=== PATIENT | female | born 1960 | race Caucasian/White ===

== ENCOUNTER 2016-10-02 10:46 | Inpatient (IN) | payer MEDICARE, OTHER ==
[2016-10-02 12:40] LABS: Hematocrit 42 % (35-47); Hemoglobin 13.5 g/dl (12.0-16.0); Mean Corpuscular HGB Conc 33 g/dl (31-36); Mean Corpuscular Hemoglobin 29 pg (27-31); Mean Corpuscular Volume 90 fL (80-97); Mean Platelet Volume 8 um3 (7.4-10.4); Red Blood Count 4.61 10^6/ul (4.0-5.4); Red Cell Distribution Width 12 % (10.5-15); White Blood Count 7.4 10^3/ul (3.5-10.8)
[2016-10-02 12:45] LABS: Urine Bilirubin Negative (Negative); Urine Glucose Negative (Negative); Urine Nitrite Negative (Negative)
[2016-10-02 12:53] LABS: ALT 19 U/L (7-52); AST 22 U/L (13-39); Albumin 4.6 g/dL (3.2-5.2); Alkaline Phosphatase 45 U/L (34-104); Anion Gap 7 mmol/L (2-11); BUN/Creatinine Ratio 10.9 (8-20); Blood Urea Nitrogen 10 mg/dL (6-24); CO2 Carbon Dioxide 27 mmol/L (22-32); Chloride 103 mmol/L (101-111); EGFR African American 81.2 (>60); EGFR Non-African American 63.1 (>60); Glucose 95 mg/dL (70-100); Lipase < 10 U/L (11.0-82.0); Potassium 4.3 mmol/L (3.5-5.0); Sodium 137 mmol/L (133-145); Total Protein 7.6 g/dL (6.4-8.9)
--- NOTE | 2016-10-02 13:11 | RAD ---
HISTORY: Right upper quadrant pain COMPARISONS: None TECHNIQUE: Multiple transverse and longitudinal ultrasound images were obtained of the right upper quadrant of the abdomen using grayscale and color Doppler imaging. FINDINGS: LIVER: The liver is diffusely echogenic and coarse in echotexture, with decreased acoustic transmission. The liver is otherwise normal in shape, size, and contour. There is normal hepatopedal flow of the portal vein on Doppler imaging. BILIARY TREE: There is no intrahepatic or extrahepatic biliary dilatation. The common duct measures 0.2 cm. GALLBLADDER: The gallbladder is well-visualized. There is no cholelithiasis, gallbladder wall thickening, pericholecystic fluid, or sonographic Mcpherson sign. PANCREAS: The head of the pancreas is unremarkable. The tail of the pancreas is not well visualized secondary to overlying bowel gas. RIGHT KIDNEY: The right kidney is normal in shape, size, contour, and echogenicity. There is no hydronephrosis or nephrolithiasis. The right kidney measures 9.1 x 3.2 x 4.8 cm. AORTA AND IVC: The aorta and IVC are unremarkable. FLUID: There are no pleural effusions. There is no free fluid within the hepatorenal recess. OTHER FINDINGS: None. IMPRESSION: ECHOGENIC LIVER SUGGESTIVE OF FATTY INFILTRATION
[2016-10-02] MEDS ORDERED: Lidocaine 2% VISCOUS* 15 ML UDC PO ONE (13:17)
[2016-10-02] MEDS ORDERED: Al Hydrox/Mg Hydrox/Simet LIQ* 30 ML UDC PO ONE (13:17)
[2016-10-02 14:49] LABS: Acetaminophen 0 mcg/mL; Alcohol < 10 mg/dL (<10); TSH (Thyroid Stimulating Horm) 2.34 mcIU/mL (0.34-5.60)
[2016-10-02 15:04] LABS: Benzodiazepine Urine Screen None Detected (None Detect)
--- NOTE | 2016-10-02 15:21 | ED ---
Abdominal Pain/Female - HPI Summary HPI Summary: 56F presents with abdominal pain for two months. She states the pain is worst when eating. She denies any n/v/d/c or fever. She denies any dysuria, hematuria , urgency, or frequency. She states she has chronic back pain and hip pain which she sees the pain clinic for. She states that had a pain patch placed a week ago but the pain clinic but feels that the side effects are not tolerable. She denies any loss of bowel or bladder or saddle anaesthesia. She denies any new injury. She states she has history of opioid abuse so she does not want pain medication. Also says that counselor is advising mental health exam but patient declined. She denies any SI/HI at the time. She has PMH of depression - History of Current Complaint Chief Complaint: EDAbdPain Stated Complaint: MHE Time Seen by Provider: 10/02/16 11:06 Pain Intensity: 6 Allergies/Adverse Reactions: Allergies Allergy/AdvReac Type Severity Reaction Status Date / Time CI Pigment Blue 63 Allergy Rash Verified 10/02/16 11:38 [From Cymbalta] Duloxetine [From Cymbalta] Allergy Rash Verified 10/02/16 11:38 Home Medications: Home Medications Buprenorphine 10 MCG PATCH(NF) [Butrans 10 MCG PATCH(NF)] 10 mcg TRANSDERM WEEKLY 10/02/16 [History Confirmed 10/02/16] Citalopram Hydrobromide [Celexa] 10 mg PO DAILY 10/02/16 [History Confirmed 06/16] Gabapentin CAP(*) [Neurontin 100 mg CAP(*)] 200 mg PO BID 10/02/16 [History Confirmed 10/02/16] Mirtazapine [Remeron] 30 mg PO DAILY 10/02/16 [History Confirmed 10/02/16] Risperidone 0.25 mg PO DAILY 10/02/16 [History Confirmed 10/02/16] Tizanidine HCl [Zanaflex] 4 mg PO TID PRN 10/02/16 [History Confirmed 10/02/16] PMH/Surg Hx/FS Hx/Imm Hx Endocrine/Hematology History: Denies: Hx Anticoagulant Therapy Musculoskeletal History: Reports: Hx Back Problems Psychiatric History: Reports: Hx Depression Denies: Hx of Violent Episodes Against Others Infectious Disease History: No Infectious Disease History: Denies: Traveled Outside the [place] in Last 30 Days - Family History Known Family History: Negative: Cardiac Disease - Social History Alcohol Use: Rare Substance Use Type: Reports: Prescribed Smoking Status (MU): Light Every Day Tobacco Smoker Review of Systems Negative: Fever Negative: Chest Pain Negative: Shortness Of Breath Positive: Abdominal Pain. Negative: Vomiting, Diarrhea, Nausea Positive: Myalgia - back pain All Other Systems Reviewed And Are Negative: Yes Physical Exam Triage Information Reviewed: Yes Vital Signs On Initial Exam: Initial Vitals Temp Pulse Resp BP Pulse Ox 97.8 F 58 18 113/73 100 10/02/16 10:51 10/02/16 10:51 10/02/16 10:51 10/02/16 10:51 10/02/16 10:51 Vital Signs Reviewed: Yes Appearance: Positive: Well-Appearing Skin: Positive: Warm, Dry Head/Face: Positive: Normal Head/Face Inspection Eyes: Positive: Normal, EOMI, [facility], Conjunctiva Clear ENT: Positive: Normal ENT inspection, Pharynx normal, TMs normal Respiratory/Lung Sounds: Positive: Clear to Auscultation, Breath Sounds Present Cardiovascular: Positive: Normal, RRR Abdomen Description: Positive: Soft, Other: - epigastric pain Bowel Sounds: Positive: Present Musculoskeletal: Positive: Other - tender across lower back - Ray Coma Scale Coma Scale Total: 15 Diagnostics - Vital Signs Vital Signs Temp Pulse Resp BP Pulse Ox 10/02/16 11:28 97.8 F 58 18 113/73 100 10/02/16 10:51 97.8 F 58 18 113/73 100 - Laboratory Lab Results: Lab Results 10/02/16 10/02/16 10/02/16 Range/Units 12:18 12:18 12:18 WBC 7.4 (3.5-10.8) 10^3/ul RBC 4.61 (4.0-5.4) 10^6/ul Hgb 13.5 (12.0-16.0) g/dl Hct 42 (35-47) % MCV 90 (80-97) fL MCH 29 (27-31) pg MCHC 33 (31-36) g/dl RDW 12 (10.5-15) % Plt Count 265 (150-450) 10^3/ul MPV 8 (7.4-10.4) um3 Neut % (Auto) 49.7 (38-83) % Lymph % (Auto) 43.4 (25-47) % [place] % (Auto) 5.4 (1-9) % Eos % (Auto) 1.0 (0-6) % Baso % (Auto) 0.5 (0-2) % Absolute Neuts (auto) 3.7 (1.5-7.7) 10^3/ul Absolute Lymphs (auto) 3.2 (1.0-4.8) 10^3/ul Absolute Monos (auto) 0.4 (0-0.8) 10^3/ul Absolute Eos (auto) 0.1 (0-0.6) 10^3/ul Absolute Basos (auto) 0 (0-0.2) 10^3/ul Absolute Nucleated RBC 0.01 10^3/ul Nucleated RBC % 0.1 Sodium 137 (133-145) mmol/L Potassium 4.3 (3.5-5.0) mmol/L Chloride 103 (101-111) mmol/L Carbon Dioxide 27 (22-32) mmol/L Anion Gap 7 (2-11) mmol/L BUN 10 (6-24) mg/dL Creatinine 0.92 (0.51-0.95) mg/dL Est GFR ( Amer) 81.2 (>60) Est GFR (Non-Af Amer) 63.1 (>60) BUN/Creatinine Ratio 10.9 (8-20) Glucose 95 (70-100) mg/dL Calcium 10.0 (8.6-10.3) mg/dL Total Bilirubin 0.70 (0.2-1.0) mg/dL AST 22 (13-39) U/L ALT 19 (7-52) U/L Alkaline Phosphatase 45 (34-104) U/L C-React Prot High Sens 0.77 mg/L Total Protein 7.6 (6.4-8.9) g/dL Albumin 4.6 (3.2-5.2) g/dL Globulin 3.0 (2-4) g/dL Albumin/Globulin Ratio 1.5 (1-3) Lipase < 10 L (11.0-82.0) U/L TSH 2.34 (0.34-5.60) mcIU/mL Urine Color Straw Urine Appearance Clear Urine pH 7.0 (5-9) Ur Specific [place] 1.002 L (1.010-1.030) Urine Protein Negative (Negative) Urine Ketones Negative (Negative) Urine Blood Negative (Negative) Urine Nitrate Negative (Negative) Urine Bilirubin Negative (Negative) Urine Urobilinogen Negative (Negative) Ur Leukocyte Esterase Negative (Negative) Urine Glucose Negative (Negative) Salicylates 0.30 (<30) mg/dL Urine Opiates Screen (None Detect) Acetaminophen 0 mcg/mL Ur Barbiturates Screen (None Detect) Ur Phencyclidine Scrn (None Detect) Ur Amphetamines Screen (None Detect) U Benzodiazepines Scrn (None Detect) Urine Cocaine Screen (None Detect) U Cannabinoids Screen (None Detect) Serum Alcohol < 10 (<10) mg/dL 10/02/16 Range/Units 14:13 WBC (3.5-10.8) 10^3/ul RBC (4.0-5.4) 10^6/ul Hgb (12.0-16.0) g/dl Hct (35-47) % MCV (80-97) fL MCH (27-31) pg MCHC (31-36) g/dl RDW (10.5-15) % Plt Count (150-450) 10^3/ul MPV (7.4-10.4) um3 Neut % (Auto) (38-83) % Lymph % (Auto) (25-47) % [place] % (Auto) (1-9) % Eos % (Auto) (0-6) % Baso % (Auto) (0-2) % Absolute Neuts (auto) (1.5-7.7) 10^3/ul Absolute Lymphs (auto) (1.0-4.8) 10^3/ul Absolute Monos (auto) (0-0.8) 10^3/ul Absolute Eos (auto) (0-0.6) 10^3/ul Absolute Basos (auto) (0-0.2) 10^3/ul Absolute Nucleated RBC 10^3/ul Nucleated RBC % Sodium (133-145) mmol/L Potassium (3.5-5.0) mmol/L Chloride (101-111) mmol/L Carbon Dioxide (22-32) mmol/L Anion Gap (2-11) mmol/L BUN (6-24) mg/dL Creatinine (0.51-0.95) mg/dL Est GFR ( Amer) (>60) Est GFR (Non-Af Amer) (>60) BUN/Creatinine Ratio (8-20) Glucose (70-100) mg/dL Calcium (8.6-10.3) mg/dL Total Bilirubin (0.2-1.0) mg/dL AST (13-39) U/L ALT (7-52) U/L Alkaline Phosphatase (34-104) U/L C-React Prot High Sens mg/L Total Protein (6.4-8.9) g/dL Albumin (3.2-5.2) g/dL Globulin (2-4) g/dL Albumin/Globulin Ratio (1-3) Lipase (11.0-82.0) U/L TSH (0.34-5.60) mcIU/mL Urine Color Urine Appearance Urine pH (5-9) Ur Specific [place] (1.010-1.030) Urine Protein (Negative) Urine Ketones (Negative) Urine Blood (Negative) Urine Nitrate (Negative) Urine Bilirubin (Negative) Urine Urobilinogen (Negative) Ur Leukocyte Esterase (Negative) Urine Glucose (Negative) Salicylates (<30) mg/dL Urine Opiates Screen None detected (None Detect) Acetaminophen mcg/mL Ur Barbiturates Screen None detected (None Detect) Ur Phencyclidine Scrn None detected (None Detect) Ur Amphetamines Screen None detected (None Detect) U Benzodiazepines Scrn None detected (None Detect) Urine Cocaine Screen None detected (None Detect) U Cannabinoids Screen None detected (None Detect) Serum Alcohol (<10) mg/dL Result Diagrams: 10/02/16 12:18 10/02/16 12:18 Lab Statement: Any lab studies that have been ordered have been reviewed, and results considered in the medical decision making process. - Ultrasound No standard instances Ultrasound Interpretation: No Acute Changes - IMPRESSION: ECHOGENIC LIVER SUGGESTIVE OF FATTY INFILTRATION Ultrasound Interpretation Completed By: Radiologist Abdominal Pain Fem Course/Dx - Course Course Of Treatment: 56F presents with abdominal pain for two months. She states the pain is worst when eating. She denies any n/v/d/c or fever. She denies any dysuria, hematuria, urgency, or frequency. on exam tender in epigastric. normal labs and u/s.She states she has chronic back pain and hip pain which she sees the pain clinic for. She states that had a pain patch placed a week ago but the pain clinic but feels that the side effects are not tolerable. She denies any loss of bowel or bladder or saddle anaesthesia. She denies any new injury. She states she has history of opioid abuse so she does not want pain medication. Also says that counselor is advising mental health exam but patient declined. She denies any SI/HI at the time. When discussed results patient says would like MHE now. [facility] evulauted and dr ag felt that need to be admitted for opioid withdrawal, depression with psychosis. patient will be admitted voluntarily. - Diagnoses Differential Diagnosis: Positive: Peptic Ulcer Disease, Other - acid reflux, depression Provider Diagnoses: Epigastric pain, Opioid withdrawal, Severe major depression with psychotic features Discharge - Discharge Plan Condition: Stable Disposition: PSYCHIATRIC FACILITY-[facility] – [place]
[2016-10-02] MEDS ORDERED: Nicotine Inhaler* 10 MG AMP INH PRN (16:08)
[2016-10-02] MEDS ORDERED: tiZANidine TAB* 2 MG PO PRN (16:14)
[2016-10-02] MEDS ORDERED: Buprenorphine 10 MCG PATCH(NF) 10 MCG/HR PATCH (10 MG TOTAL) TRANSDERM SCH (17:00)
[2016-10-02] MEDS ORDERED: Nicotine Patch Removal NOTE PATCH OFF SCH (21:00)
[2016-10-02] MEDS: Gabapentin CAP(*) 100 MG PO SCH (21:07)
[2016-10-02] MEDS: Acetaminophen TAB* 325 MG PO PRN (22:16)
[2016-10-03] MEDS ORDERED: Nicotine PATCH 7 MG/24 HR* PATCH TRANSDERM SCH (08:00)
[2016-10-03] MEDS ORDERED: Nicotine PATCH 14 MG/24 HR* PATCH TRANSDERM SCH (08:00)
[2016-10-03] MEDS ORDERED: Nicotine PATCH 21 MG/24 HR* PATCH TRANSDERM SCH (08:00)
[2016-10-03] MEDS: Vitamin THERAPEUTIC TAB PO SCH (08:23)
[2016-10-03] MEDS: Gabapentin CAP(*) 100 MG PO SCH ×2 (08:24→21:35)
[2016-10-03] MEDS: Mirtazapine TAB* 15 MG PO SCH (08:27)
[2016-10-03] MEDS: Venlafaxine EXT RELEASE CAP* 75 MG PO SCH (08:28)
[2016-10-03] MEDS: Acetaminophen TAB* 325 MG PO PRN (20:30)
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
[2016-10-04] MEDS: Gabapentin CAP(*) 100 MG PO SCH ×3 (01:39→20:14)
[2016-10-04] MEDS: Vitamin THERAPEUTIC TAB PO SCH (09:05)
[2016-10-04] MEDS: Mirtazapine TAB* 15 MG PO SCH (09:05)
[2016-10-04] MEDS: Venlafaxine EXT RELEASE CAP* 75 MG PO SCH (09:07)
--- NOTE | 2016-10-04 11:06 | PN ---
MHU: Group Therapy Note - Service Type Service Type: 99181 Group Psychotherapy - Cognitive Behavioral Group Therapy ( CBT):Patient was attentive and participatory in CBT programming this morning, and remained in good behavioral control. Patient expressed positive insights regarding relevant treatment interventions and goals.
[2016-10-04] MEDS: Acetaminophen TAB* 325 MG PO PRN (14:45)
--- NOTE | 2016-10-04 15:18 | PN ---
Subjective - Subjective Service Type: 04596 Hosp care 25 min moderate complexity Subjective: Patient noted to be social and involved in milieu activities and groups. She is noted to be activated in manner prior to interview. Patient reports ongoing depression and is tearful at times through interview. She reports desire to stop opioid pain mx(pills and patch). Patient reports distress from her perception of being called a drug abuser by her providers and from not being believed by her providers that she has back pain. Patient desire to stop Mirtazepine as she reports ongoing insomnia and reports the weight gain she's experienced on the med only intensifies her back pain. She denies SI/HI and AH/VH. Objective - Appearance Appearance: Well Developed/Nourished Dysmorphic Features: No Hygiene: Normal Grooming: Fairly Well Kept - Behavior Psychomotor Activities: Normal Exhibits Abnormal Movement: No - Attitude and Relatedness Attitude and Relatedness: Cooperative Eye Contact: Fair - Speech Quality: Unpressured Latencies: Normal Quantity: Appropriate - Mood Patient's Decription of Mood: "Anxious" - Affect Observed Affect: Labile Affect Consistent with: Dysphoria - Thought Process Patient's Thought Process: Coherent Thought Content: No Passive Wish, No Suicidal Planning, No Homicidal Ideation, No Paranoid Ideation - Sensorium Experiencing Hallucinations: No, Sensorium is Clear Type of Hallucinations: Visual: No, Auditory: No, Command: No - Level of Consciousness Level of Consciousness: Alert Orientation: Yes Intact, Yes Orientated to Time, Yes Orientated to Place, Yes Orientated to Person - Impulse Control Impulse Control: Intact - Insight and Judgement Insight and Judgement: Fair - Group Participation Particating in Group Activities: Yes - Medication Management Medication Management Adherence: Yes Assessment - Assessment Merits Inpatient Hospitalization: For Immediate Safety, For Stabilization Inpatient DSM-IV Dx: 1. Opioid use disorder, severe. 2. Bipolar d/o unspecified , MRE depressed. 3. r/o PTSD Plan - Plan Treatment Plan: Name: BRINDA SAM Birthdate: 1960 [id number] 1. Continue DURANT admission for safety and symptom mx. 2. Continue home dose Effexor XR 75mg po daily for depressive symptoms. 3. Continue Risperdal 0.25mg po qhs for mood augmentation/ night time anxiety. 4. Continue Gabapentin 200mg po TID for anxiety /mood augmentation. 5. Discontinue Mirtazepine 30mg po qhs as patient reports ongoing poor sleep and wt. gain s/e which further aggravates her back pain. 6. Patient gives informed consent to start Elavil 25mg po qhs for neuropathic back pain and insomnia. 7. Continue obtaining collateral information from [facility]. 8. Patient to participate in milieu activities and groups. Medications: Current Medications Acetaminophen (Tylenol Tab*) 650 mg PO Q4H PRN PRN Reason: for pain; or Temp >101 F Last Admin: 10/04/16 14:45 Dose: 650 mg Gabapentin (Neurontin Cap(*)) 200 mg PO BID [facility] Last Admin: 10/04/16 09:04 Dose: 100 mg Mirtazapine (Remeron Tab*) 30 mg PO DAILY [facility] Last Admin: 10/04/16 09:05 Dose: Not Given Multivitamins (Theragran Tab*) 1 tab PO DAILY [facility] Last Admin: 10/04/16 09:05 Dose: 1 tab Nicotine (Nicotine Inhaler*) 10 mg INH Q2H PRN PRN Reason: CRAVING Risperidone (Risperdal) 0.25 mg PO DAILY [facility] Last Admin: 10/04/16 09:05 Dose: Not Given Tizanidine HCl (Zanaflex Tab*) 4 mg PO TID PRN PRN Reason: PAIN Venlafaxine HCl (Effexor Xr Cap*) 75 mg PO DAILY [facility] Last Admin: 10/04/16 09:07 Dose: Not Given - Discharge Plan Discharge Plan: Outpatient Follow Up Outpatient Program: [facility]
[2016-10-04] MEDS ORDERED: Amitriptyline TAB* 25 MG PO SCH (21:00)
[2016-10-05] MEDS: Vitamin THERAPEUTIC TAB PO SCH (08:59)
[2016-10-05] MEDS: Gabapentin CAP(*) 100 MG PO SCH ×2 (09:03→20:57)
[2016-10-05] MEDS: Venlafaxine EXT RELEASE CAP* 75 MG PO SCH (09:04)
--- NOTE | 2016-10-05 11:05 | PN ---
MHU: Group Therapy Note - Service Type Service Type: [id number] Group Psychotherapy - Cognitive Behavioral Group Therapy ( CBT):Patient was attentive and participatory in CBT programming this morning, and remained in good behavioral control. Patient expressed positive insights regarding relevant treatment interventions and goals.
[2016-10-05] MEDS ORDERED: Docusate CAP* 100 MG PO ONE (14:12)
[2016-10-05] MEDS ORDERED: Docusate CAP* 100 MG PO PRN (14:13)
--- NOTE | 2016-10-05 14:14 | PN ---
Subjective - Subjective Service Type: 13151 Hosp care 15 min low complexity Subjective: Patient noted to be more social with peers. She is actively participating in milieu activities and groups. Patient is less labile on interview today, but does tear up when talking about feeling looked upon as a liar by providers regarding her back pain. Patient is noted to have slept 8 hrs last night. She has strong steady gait with no limping or wincing. Patient reports feeling stable for discharge. She identifies having good sleep on the unit as the reason for her mood improvement. Patient is med compliant. She requests d/c of Elavil 25mg po qhs as patient experienced episodes of leg cramping last night and reports she now recalls hx of Elavil use with s/e of recurrent leg cramps. Patient denies other med s/e's. Patient amenable to increased Risperdal dose for mood stabilization and anxiety. Patient informed this med will help with sleep so no med for insomnia will be rx'd to replace Elavil. She reports fair appetite. Patient denies SI/HI and AH/VH. Patient requests discharge and reports strong support from amish community. Patient reports she lives across the street from her amish, [facility]. Patient reports visits from [place]. She reports [employer] has programs including meals, grief mx groups, and she reports her primary hobby is maintaining the go[place]ish [place]. Patient reports her Aunt Valerie# has agreed to be with her on discharge and transport her back home. Objective - Appearance Appearance: Well Developed/Nourished Dysmorphic Features: No Hygiene: Normal Grooming: Fairly Well Kept - Behavior Psychomotor Activities: Normal Exhibits Abnormal Movement: No - Attitude and Relatedness Attitude and Relatedness: Cooperative Eye Contact: Good - Speech Quality: Unpressured Latencies: Normal Quantity: Appropriate - Mood Patient's Decription of Mood: "Okay" - Affect Observed Affect: Good Affect Consistent with: Euthymia - Thought Process Patient's Thought Process: Coherent Thought Content: No Passive Wish, No Suicidal Planning, No Homicidal Ideation, No Paranoid Ideation - Sensorium Experiencing Hallucinations: No, Sensorium is Clear Type of Hallucinations: Visual: No, Auditory: No, Command: No - Level of Consciousness Level of Consciousness: Alert Orientation: Yes Intact, Yes Orientated to Time, Yes Orientated to Place, Yes Orientated to Person - Impulse Control Impulse Control: Intact - Insight and Judgement Insight and Judgement: Fair - Group Participation Particating in Group Activities: Yes - Medication Management Medication Management Adherence: Yes Assessment - Assessment Merits Inpatient Hospitalization: For Immediate Safety, For Stabilization Inpatient DSM-IV Dx: 1. Opioid use disorder, severe. 2. Bipolar d/o unspecified , MRE depressed. 3. r/o PTSD Plan - Plan Treatment Plan: Name: BRINDA SAM Birthdate: 1960 [id number] 1. Continue DURANT admission for safety and symptom mx. 2. Continue home dose Effexor XR 75mg po daily for depressive symptoms. 3. Increase Risperdal from 0.25mg to 0.5mg po qhs for mood augmentation/ night time anxiety/ insomnia. 4. Continue Gabapentin 200mg po TID for anxiety /mood augmentation. 5. Discontinue Mirtazepine 30mg po qhs as patient reports ongoing poor sleep and wt. gain s/e which further aggravates her back pain. 6. Discontinue Elavil 25mg po qhs as patient reports episodes of leg cramping last night and reports she now recalls hx of Elavil use with s/e of recurrent leg cramps. 7. Agree with [facility] referral for ACT mx. 8. Continue obtaining collateral information from [facility]. 9. Patient to participate in milieu activities and groups. Continued Medication Management: Start Medication Medications: Current Medications Acetaminophen (Tylenol Tab*) 650 mg PO Q4H PRN PRN Reason: for pain; or Temp >101 F Last Admin: 10/04/16 14:45 Dose: 650 mg Amitriptyline HCl (Elavil Tab*) 25 mg PO BEDTIME [facility] Last Admin: 10/04/16 20:14 Dose: 25 mg Docusate Sodium (Colace Cap*) 100 mg PO ONCE ONE Stop: 10/05/16 14:13 Docusate Sodium (Colace Cap*) 100 mg PO DAILY PRN PRN Reason: CONSTIPATION Gabapentin (Neurontin Cap(*)) 200 mg PO BID [facility] Last Admin: 10/05/16 09:03 Dose: 200 mg Multivitamins (Theragran Tab*) 1 tab PO DAILY [facility] Last Admin: 10/05/16 08:59 Dose: 1 tab Nicotine (Nicotine Inhaler*) 10 mg INH Q2H PRN PRN Reason: CRAVING Risperidone (Risperdal) 0.25 mg PO DAILY [facility] Last Admin: 10/05/16 09:00 Dose: 0.25 mg Tizanidine HCl (Zanaflex Tab*) 4 mg PO TID PRN PRN Reason: PAIN Venlafaxine HCl (Effexor Xr Cap*) 75 mg PO DAILY [facility] Last Admin: 10/05/16 09:04 Dose: Not Given - Discharge Plan Discharge Plan: Outpatient Follow Up Outpatient Program: Private Clinician(s)
[2016-10-05] MEDS: Acetaminophen TAB* 325 MG PO PRN (18:15)
[2016-10-06] MEDS: Acetaminophen TAB* 325 MG PO PRN (06:59)
[2016-10-06 08:23] VITALS: BP 135/74
[2016-10-06] MEDS: Vitamin THERAPEUTIC TAB PO SCH (08:44)
[2016-10-06] MEDS: Gabapentin CAP(*) 100 MG PO SCH (08:45)
[2016-10-06] MEDS: Venlafaxine EXT RELEASE CAP* 75 MG PO SCH (08:45)
--- NOTE | 2016-10-06 11:33 | PN ---
MHU: Group Therapy Note - Service Type Service Type: [id number] Group Psychotherapy - Cognitive Behavioral Group Therapy ( CBT):Patient was attentive and participatory in CBT programming this morning, and remained in good behavioral control. Patient expressed positive insights regarding relevant treatment interventions and goals.
--- NOTE | 2016-10-06 15:43 | DS ---
Subjective - Subjective Service Types: [id number] Hosp [place] Day Mgmt simple under 30 min Subjective: Patient reports ongoing mood improvement. She is med compliant and denies med s/ e's. Patient identifies her much improved sleep as contributing most to her mood improvement. She has denied opioid w/d symptoms since admission. She has reported no pain to this provider since admission. Appetite is wnl. Patient reports benefit from groups. She reports feeling stable for discharge. She denies SI/HI and AH/VH. Objective - Appearance Appearance: Well Developed/Nourished Dysmorphic Features: No Hygiene: Normal Grooming: Well Kept - Behavior Psychomotor Activities: Normal Exhibits Abnormal Movement: No - Attitude and Relatedness Attitude and Relatedness: Cooperative Eye Contact: Good - Speech Quality: Unpressured Latencies: Normal Quantity: Appropriate - Mood Patient's Decription of Mood: "Fine" - Affect Observed Affect: Fair - Thought Process Patient's Thought Process: Coherent Thought Content: No Passive Wish, No Suicidal Planning, No Homicidal Ideation, No Paranoid Ideation - Sensorium Experiencing Hallucinations: No, Sensorium is Clear Type of Hallucinations: Visual: No, Auditory: No, Command: No - Level of Consciousness Level of Consciousness: Alert Orientation: Yes Intact, Yes Orientated to Time, Yes Orientated to Place, Yes Orientated to Person - Impulse Control Impulse Control: Intact - Insight and Judgement Insight and Judgement: Fair - Group Participation Particating in Group Activities: Yes - Medication Management Medication Management Adherence: Yes Treatment Course & Assessment Clinical Course & Impression: HOSPITAL COURSE: Patient is a 56yo female with PPHx significant for Bipolar d/o and Opioid use d/ o who presented to [facility] voluntarily due to worsening depressive symptoms. Patient also somatically preoccupied reporting severe LBP and LE neuropathic pain, worse at night, with no noticeable muscle weakness or abnormalities in her gait. Patient reports distress from her perception that her medical providers call her a "drug abuser" and that they don't believe she has back pain. Patient reports a med change in opioid pain mx from Vicodin tabs to daily Suboxone 10mg patch approx 3 months ago. It's been recently noted by yazidi members that patient has been more isolative and withdrawn. Members reported concerns that she was abusing her patches. Patient reports her patch was too strong and she attributed her mood issues to the high dose opioid patch. She endorsed remote hx of abusing her opioid pills, but adamantly denied abuse of the patches. Patient primarily was interested in stopping opioid pain mx with this admission. Patient was noted to have mild opioid withdrawal symptoms in the ED. Patient also requests d/c of Mirtazepine as she reports ongoing insomnia and reports the weight gain she's experienced on this med only intensifies her back pain. Patient admitted for symptom mx and med modification. Suboxone 10mg patch was discontinued. Home dose Effexor XR 75mg po daily for depressive symptoms. Gabapentin 200mg po TID was continued for neuropathic pain / anxiety / mood augmentation. Patient's Mirtazepine was d/c'd and patient was started on Elavil 25mg po qhs for neuropathic pain / insomnia. Patient was amenable to increasing Risperdal from home dose 0.25mg to 0.5mg po qhs for mood augmentation/ night time anxiety/ insomnia. Elavil was discontinued after one night of administration as patient experienced leg cramping and reported she recalled hx of Elavil use with s/e of recurrent leg cramps. Patient's sleep improved on increase of Risperdal. She had no further opioid withdrawal symptoms on the unit. over her admission, patient's mood improved. As her admission progressed, patient noted to be more social with peers. She was noted to participate in milieu activities and groups. On day of discharge, patient reported no med s/e's on new psychotropic regimen. Patient reported feeling stable for discharge. She identifies having good sleep on the unit as the reason for her mood improvement. Patient made no further pain compliants. Patient requested discharge and reported strong support from yazidi community. Patient reports she lives across the street from her yazidi, [facility]. 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 Patient reports her Aunt Valerie#[phone] has agreed to be with her on discharge and transport her back home. She is psychiatrically stable and future oriented. She is amenable to discharge f/u plan. PERTINENT LABS: 10/02/16 10/02/16 10/02/16 12:18 12:18 12:18 WBC 7.4 RBC 4.61 Hgb 13.5 Hct 42 MCV 90 MCH 29 MCHC 33 RDW 12 Plt Count 265 MPV 8 Neut % (Auto) 49.7 Lymph % (Auto) 43.4 [place] % (Auto) 5.4 Eos % (Auto) 1.0 Baso % (Auto) 0.5 Absolute Neuts (auto) 3.7 Absolute Lymphs (auto) 3.2 Absolute Monos (auto) 0.4 Absolute Eos (auto) 0.1 Absolute Basos (auto) 0 Absolute Nucleated RBC 0.01 Nucleated RBC % 0.1 Sodium 137 Potassium 4.3 Chloride 103 Carbon Dioxide 27 Anion Gap 7 BUN 10 Creatinine 0.92 Est GFR ( Amer) 81.2 Est GFR (Non-Af Amer) 63.1 BUN/Creatinine Ratio 10.9 Glucose 95 Calcium 10.0 Total Bilirubin 0.70 AST 22 ALT 19 Alkaline Phosphatase 45 C-React Prot High Sens 0.77 Total Protein 7.6 Albumin 4.6 Globulin 3.0 Albumin/Globulin Ratio 1.5 Lipase < 10 L TSH 2.34 Urine Color Straw Urine Appearance Clear Urine pH 7.0 Ur Specific [place] 1.002 L Urine Protein Negative Urine Ketones Negative Urine Blood Negative Urine Nitrate Negative Urine Bilirubin Negative Urine Urobilinogen Negative Ur Leukocyte Esterase Negative Urine Glucose Negative Salicylates 0.30 Urine Opiates Screen Acetaminophen 0 Ur Barbiturates Screen Ur Phencyclidine Scrn Ur Amphetamines Screen U Benzodiazepines Scrn Urine Cocaine Screen U Cannabinoids Screen Serum Alcohol < 10 10/02/16 14:13 WBC RBC Hgb Hct MCV MCH MCHC RDW Plt Count MPV Neut % (Auto) Lymph % (Auto) [place] % (Auto) Eos % (Auto) Baso % (Auto) Absolute Neuts (auto) Absolute Lymphs (auto) Absolute Monos (auto) Absolute Eos (auto) Absolute Basos (auto) Absolute Nucleated RBC Nucleated RBC % Sodium Potassium Chloride Carbon Dioxide Anion Gap BUN Creatinine Est GFR ( Amer) Est GFR (Non-Af Amer) BUN/Creatinine Ratio Glucose Calcium Total Bilirubin AST ALT Alkaline Phosphatase C-React Prot High Sens Total Protein Albumin Globulin Albumin/Globulin Ratio Lipase TSH Urine Color Urine Appearance Urine pH Ur Specific [place] Urine Protein Urine Ketones Urine Blood Urine Nitrate Urine Bilirubin Urine Urobilinogen Ur Leukocyte Esterase Urine Glucose Salicylates Urine Opiates Screen None detected Acetaminophen Ur Barbiturates Screen None detected Ur Phencyclidine Scrn None detected Ur Amphetamines Screen None detected U Benzodiazepines Scrn None detected Urine Cocaine Screen None detected U Cannabinoids Screen None detected Serum Alcohol Discharge Meds: Home Medications Medication Instructions Recorded Confirmed Type Tizanidine HCl [Zanaflex] 4 mg PO TID PRN 10/02/16 10/02/16 History Gabapentin CAP(*) [Neurontin 100 200 mg PO BID #120 10/06/16 Rx mg CAP(*)] Risperidone [Risperdal] 0.5 mg PO BEDTIME #30 tab 10/06/16 Rx Venlafaxine EXT RELEASE CAP* 75 mg PO DAILY #30 cap.sr 10/06/16 Rx [Effexor Xr CAP*] Vitamin THERAPEUTIC TAB* 1 tab PO DAILY #30 tab 10/06/16 Rx [Theragran TAB*] Consultants: none Follow-Up: Appts for within the next 2 weeks scheduled by [facility] for PCP and MH provider at [facility]. Clear for Discharge: Adequate Clinical Respons, Acceptable Safety Profile Inpatient DSM-IV Dx: 1. Opioid withdrawal. 2. Opioid use disorder, severe. 3. 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 Discharge Planning - Discharge Planning Discharge Plan: Outpatient Follow Up Outpatient Program: ACT team referral and [facility] follow-up Recommendations for Continuing Care: Specialty Followup Medications: Current Medications Acetaminophen (Tylenol Tab*) 650 mg PO Q4H PRN PRN Reason: for pain; or Temp >101 F Last Admin: 10/06/16 06:59 Dose: 650 mg Docusate Sodium (Colace Cap*) 100 mg PO DAILY PRN PRN Reason: CONSTIPATION Gabapentin (Neurontin Cap(*)) 200 mg PO BID [facility] Last Admin: 10/06/16 08:45 Dose: 200 mg Multivitamins (Theragran Tab*) 1 tab PO DAILY [facility] Last Admin: 10/06/16 08:44 Dose: 1 tab Nicotine (Nicotine Inhaler*) 10 mg INH Q2H PRN PRN Reason: CRAVING Risperidone (Risperdal) 0.5 mg PO BEDTIME [facility] Last Admin: 10/05/16 20:57 Dose: 0.5 mg Tizanidine HCl (Zanaflex Tab*) 4 mg PO TID PRN PRN Reason: PAIN Venlafaxine HCl (Effexor Xr Cap*) 75 mg PO DAILY [facility] Last Admin: 10/06/16 08:45 Dose: 75 mg Discharge Planning: Prescriptions provided for discharge [x] Yes [] No Follow up care details as per social work arrangements. Patient response to discharge plan: [] eager for discharge [x] agreeable with discharge plan [] ambivalent about discharge [] disagrees with discharge today
== END 2016-10-06 16:51 | disposition home or self-care (01) | DRG 885 ==
LOC: ED 10:46 → BSU 16:12 → ED 17:55
PROVIDERS: ADMIT Psychiatry & Neurology Psychiatry; ATTEND Psychiatry & Neurology Psychiatry
PROC: GZHZZZZ Group Psychotherapy (ICD-10-PCS; principal; 2016-10-04)
DX: F31.30 Bipolar disorder, current episode depressed, mild or moderate severity, unspecified (principal); Z91.19 Patient's noncompliance with other medical treatment and regimen; F41.9 Anxiety disorder, unspecified; F11.90 Opioid use, unspecified, uncomplicated; F43.10 Post-traumatic stress disorder, unspecified; Z62.810 Personal history of physical and sexual abuse in childhood; G89.29 Other chronic pain; M54.9 Dorsalgia, unspecified; R19.7 Diarrhea, unspecified; R40.2412 Glasgow coma scale score 13-15, at arrival to emergency department; Z91.410 Personal history of adult physical and sexual abuse; Z81.8 Family history of other mental and behavioral disorders; Z88.8 Allergy status to other drugs, medicaments and biological substances; Z81.1 Family history of alcohol abuse and dependence; Z87.891 Personal history of nicotine dependence
CPT/HCPCS: 36415; 76705; 80053; 80307; 80320; 80329; 81003; 83690; 84443; 85025; 86141; 90853; 99222; 99231; 99232; 99238; 99406; A9270-GY; G0480

== ENCOUNTER 2022-03-01 10:48 | Inpatient (IN) ==
[2022-03-01] MEDS ORDERED: Lactated Ringers 1000 ml BAG 1,000 ML IV ONE (12:32)
[2022-03-01 13:46] LABS: ABS Lymphocytes 1.2 10^3/ul (1.0-4.8); ABS Monocytes 0.6 10^3/ul (0-0.8); ABS Neutrophils 8.7 10^3/ul (1.5-7.7); Eosinophil % 0.3 %; Hematocrit 40 % (35-47); Hemoglobin 13.5 g/dL (12.0-16.0); Lymphocyte % 11.7 %; Mean Corpuscular HGB Conc 34 g/dL (31-36); Mean Corpuscular Hemoglobin 31 pg (27-31); Mean Corpuscular Volume 93 fL (80-97); Mean Platelet Volume 6.1 fL (7.4-10.4); Platelet Count 252 10^3/uL (150-450); Red Cell Distribution Width 15 % (10-15); White Blood Count 10.7 10^3/uL (3.5-10.8)
[2022-03-01 14:04] LABS: Activated Partial Thrombo Time 31.3 seconds (26.0-38.0); INR 0.95 (0.89-1.11)
[2022-03-01 14:09] LABS: High Sens Troponin Baseline 10 pg/mL (<15)
[2022-03-01 14:58] LABS: ALT 34 U/L (7-52); AST 31 U/L (13-39); Acetaminophen < 15 mcg/mL; Albumin 5.3 g/dL (3.2-5.2); Alcohol, S < 13 mg/dL (<13); Alkaline Phosphatase 90 U/L (35-149); Anion Gap 14 mmol/L (2-11); Blood Urea Nitrogen 16 mg/dL (6-24); C Reactive Protein 7.28 mg/L (<8.01); CO2 Carbon Dioxide 25 mmol/L (22-32); Calcium 10.6 mg/dL (8.6-10.3); Chloride 99 mmol/L (101-111); Creatine Kinase 742 U/L (10-223); Globulin 2.6 g/dL (2-4); Glucose 108 mg/dL (70-100); Potassium 4.7 mmol/L (3.5-5.0); Salicylate < 2.50 mg/dL (<30); Sodium 138 mmol/L (135-145); Total Protein 7.9 g/dL (6.4-8.9); eGFR CKD-EPI 74.7 (>60)
[2022-03-01 15:00] LABS: TSH Ultra Thyroid Stim Horm 5.97 mcIU/mL (0.34-5.60)
[2022-03-01 16:03] LABS: High Sensitivity Troponin 1 Hr 12 pg/mL (<15)
[2022-03-01 17:30] LABS: Urine Appearance Clear; Urine Bilirubin Negative (Negative); Urine Blood 1+ (Negative); Urine Color Colorless; Urine Glucose Negative (Negative); Urine Ketones Negative (Negative); Urine Nitrite Negative (Negative); Urine Protein Negative (Negative); Urine Specific Gravity 1.003 (1.002-1.030); Urine Urobilinogen Negative (Negative)
[2022-03-01 17:38] LABS: Urine Bacteria Absent (Absent); Urine Red Blood Cell Trace(0-2/hpf) (Absent); Urine White Blood Cell Absent (Absent)
[2022-03-01 17:50] LABS: Urine Benzodiazepine Screen None Detected (None Detect); Urine Cannabinoids Screen None Detected (None Detect); Urine Opiates Screen Presumptive Positive (None Detect)
[2022-03-01] MEDS ORDERED: Labetalol IV 5 MG/ML 20 ml VIAL IV PUSH PRN (18:41)
[2022-03-01] MEDS ORDERED: Lorazepam PYXIS KEY PRN ×2 (18:49)
[2022-03-01] MEDS ORDERED: LORazepam 2 mg VIAL 1 ml IV PUSH ONE (18:49)
[2022-03-01] MEDS ORDERED: LORazepam 2 mg VIAL 1 ml IV PUSH PRN (18:49)
[2022-03-01] MEDS: Enoxaparin 40 MG/0.4 ML SYR SUBCUT SCH (21:43)
[2022-03-02 06:11] LABS: ABS Lymphocytes 2.6 10^3/ul (1.0-4.8); ABS Monocytes 0.8 10^3/ul (0-0.8); ABS Neutrophils 4.7 10^3/ul (1.5-7.7); Eosinophil % 0.4 %; Hematocrit 37 % (35-47); Hemoglobin 12.2 g/dL (12.0-16.0); Lymphocyte % 31.9 %; Mean Corpuscular HGB Conc 33 g/dL (31-36); Mean Corpuscular Hemoglobin 31 pg (27-31); Mean Corpuscular Volume 93 fL (80-97); Mean Platelet Volume 6.4 fL (7.4-10.4); Platelet Count 237 10^3/uL (150-450); Red Blood Count 3.95 10^6 /uL (3.70-4.87); Red Cell Distribution Width 15 % (10-15); White Blood Count 8.1 10^3/uL (3.5-10.8)
[2022-03-02 06:40] LABS: Albumin 4.5 g/dL (3.2-5.2); Calcium 9.8 mg/dL (8.6-10.3); Globulin 2.2 g/dL (2-4); Potassium 4.1 mmol/L (3.5-5.0); Total Protein 6.7 g/dL (6.4-8.9); eGFR CKD-EPI 73.7 (>60)
[2022-03-02] MEDS: Enoxaparin 40 MG/0.4 ML SYR SUBCUT SCH (18:06)
[2022-03-03 06:32] LABS: CKMB ng/mL 5.4 ng/mL (0.6-6.3)
[2022-03-03] MEDS: Enoxaparin 40 MG/0.4 ML SYR SUBCUT SCH (19:53)
[2022-03-04 14:04] VITALS: BP 135/90
== END 2022-03-05 07:06 | disposition home or self-care (01) | DRG 72 ==
LOC: EDHOLD 10:48 → ED 10:48 → SUATTDRO 16:44 → EDHOLD 17:59 → MEDTELE 19:21 → SUATTDRO 03-03 10:33
PROVIDERS: ADMIT Hospitalist; ATTEND Family Medicine